=== PATIENT | female | born 1950 | race Caucasian/White ===

== ENCOUNTER → 2017-01-03 | Outpatient (CLI) | payer MEDICARE ==
[2017-01-03 16:08] LABS: THYROXINE (T4) 6.4 UG/DL (4.5-12.0)
== END | disposition home or self-care (01) ==
LOC: M LAB 15:00
PROVIDERS: ATTEND Family Medicine
DX: R63.5 Abnormal weight gain (principal); L65.9 Nonscarring hair loss, unspecified

== ENCOUNTER → 2017-03-17 | Outpatient (CLI) | payer MEDICARE ==
--- NOTE | 2017-03-17 13:03 | REPMRS ---
Patient History The patient states she has not had a clinical breast exam in over a year. Family history of breast cancer in mother at age 80, breast cancer in maternal aunt at age 50 or over, breast cancer in maternal cousin at age 50 or over, and prostate cancer in maternal uncle at age 50 or over. Digital Mammo Screening Bilat: March 17, 2017 - Exam #: [id number] Bilateral CC and MLO view(s) were taken. Technologist: Cynthia Lester, Technologist Prior study comparison: February 21, 2016, bilateral digital mammo screening bilat performed at [facility]. September 28, 2014, digital bilateral screening mammo, performed at [facility]. FINDINGS: There are scattered fibroglandular densities. There has been no change in the appearance of the mammogram from the prior studies. There is a mild amount of residual fibroglandular tissue which is fairly symmetric. There is no interval development of dominant mass, architectural distortion, or clustered microcalcification suggestive of malignancy. ASSESSMENT: BI-RADS/ACR category 1 mammogram. Negative. Recommendation Routine screening mammogram in 1 year (for women over age 40). This mammogram was interpreted with the aid of an FDA-approved computer-aided dectection system. Electronically Signed By: Sebas Neff MD 03/17/17 [id number]
== END ==
LOC: M RAD 12:40
PROVIDERS: ATTEND Family Medicine
DX: Z12.31 Encounter for screening mammogram for malignant neoplasm of breast (principal)

== ENCOUNTER → 2017-09-08 | Outpatient (CLI) | payer MEDICARE ==
--- NOTE | 2017-09-08 14:51 | REP ---
UNILATERAL MAMMOGRAM RIGHT BREAST WITH RIGHT BREAST ULTRASOUND: Unilateral mammogram right breast is performed. Reportedly, there is a palpable abnormality in the upper outer quadrant of the right breast. That area is marked on the skin with a triangular marker and additional spot compression views are performed. There is a family history of mother with breast cancer. Comparison is made with prior studies, most recent mammogram is 03/17/2017. Breast parenchyma is predominantly fatty replaced. No mass or clustered microcalcifications are seen. Real-time sonographic evaluation of the upper outer quadrant of the right breast demonstrates fibroglandular tissue without a discrete cystis or solid mass. IMPRESSION: ACR 2 benign. No mass or clustered microcalcifications. There is no mammographic or sonographic evidence of a mass at the site of the reported palpable abnormality in the upper outer quadrant of the right breast. A negative mammogram and ultrasound should not deter biopsy if there is a clinically suspicious palpable mass present. Clinical correlation and followup recommended. Recommend followup bilateral mammogram in March 2018. BI-RADS/ACR category 2 mammogram. Benign finding(s). Routine annual screening mammography (for women over age 40). This mammogram was interpreted with the aid of an FDA-approved computer-aided detection system. A. Negative x-ray reports should not delay biopsy if a dominant or clinically suspicious mass is present. B. Four to eight percent of cancers are not identified by x-ray. C. Adenosis and dense breasts may obscure an underlying neoplasm. The patient states she/he had a clinical breast exam in August 2017. The patient letter being requested is M2. Signed by Sebas Neff MD 09/08/2017 04:36 P
== END ==
LOC: M RAD 12:41
PROVIDERS: ATTEND Family Medicine
DX: N63.11 Unspecified lump in the right breast, upper outer quadrant (principal); Z80.3 Family history of malignant neoplasm of breast
CPT/HCPCS: 76642; G0206

== ENCOUNTER → 2019-02-08 | Outpatient (REF) | payer MEDICARE ==
[2019-02-09 13:15] LABS: BASO # 0.1 10^3/uL (0.0-0.2); BASO % 0.7 % (0.0-1.0); EOS # 0.1 10^3/uL (0.0-0.50); EOS % 0.9 % (0.0-3.0); HEMATOCRIT 38.8 % (36.0-47.0); HEMOGLOBIN 12.9 g/dl (12.0-15.5); LYMPH % 29.3 % (24.0-44.0); MEAN CORPUSCULAR HEMOGLOBIN 30.9 pg (27.0-33.0); MEAN CORPUSCULAR HGB CONC 33.2 g/dl (32.0-36.5); MEAN CORPUSCULAR VOLUME 92.8 fl (80.0-96.0); MONO # 0.5 10^3/uL (0.0-0.8); MONO % 7.7 % (0.0-5.0); NEUTROPHILS # 4.1 10^3/uL (1.8-7.7); NEUTROPHILS % 60.5 % (36.0-66.0); PLATELET COUNT, AUTOMATED 237 10^3/uL (150-450); RED BLOOD COUNT 4.18 10^6/uL (4.00-5.40); WHITE BLOOD COUNT 6.8 10^3/uL (4.0-10.0)
[2019-02-09 13:52] LABS: ALBUMIN 4.3 GM/DL (3.2-5.2); ALT/SGPT 35 U/L (12-78); BILIRUBIN,TOTAL 0.3 MG/DL (0.2-1.0); BLOOD UREA NITROGEN 19 MG/DL (7-18); CALCIUM LEVEL 8.7 MG/DL (8.8-10.2); CARBON DIOXIDE LEVEL 25 MEQ/L (21-32); CHLORIDE LEVEL 106 MEQ/L (98-107); CHOLESTEROL LEVEL 249 MG/DL (<200); CHOLESTEROL RISK RATIO 3.233 (<5); CREATININE FOR GFR 0.54 MG/DL (0.55-1.30); GLOMERULAR FILTRATION RATE > 60.0 (>45); GLUCOSE, FASTING 88 MG/DL (70-100); HDL CHOLESTEROL 77 MG/DL (>40); LDL CHOLESTEROL 135 MG/DL (<100); NON-HDL-C 172 MG/DL; POTASSIUM SERUM 4.2 MEQ/L (3.5-5.1); SODIUM LEVEL 139 MEQ/L (136-145); THYROXINE (T4) 7.1 UG/DL (4.5-12.0); TOTAL PROTEIN 7.1 GM/DL (6.4-8.2); TRIGLYCERIDES LEVEL 185 MG/DL (<150)
== END ==
LOC: M SFHCCLAY 15:57
PROVIDERS: ATTEND Family Medicine
DX: E78.5 Hyperlipidemia, unspecified (principal); R00.2 Palpitations; R63.5 Abnormal weight gain; Z23 Encounter for immunization
CPT/HCPCS: 80053; 80061; 84436; 84443; 84480; 85025; 90670; G0009; G0463

== ENCOUNTER → 2019-02-22 | Outpatient (CLI) | payer MEDICARE ==
--- NOTE | 2019-02-22 14:04 | REPMRS ---
Patient History The patient states she has not had a clinical breast exam in over a year. Family history of breast cancer at age 80 in mother, breast cancer at age 50 or over in maternal aunt, breast cancer at age 50 or over in maternal cousin, prostate cancer at age 50 or over in maternal uncle. Digital Mammo Screening Bilat: February 22, 2019 - Exam #: [id number] Bilateral CC and MLO view(s) were taken. Technologist: Aniyah López, Technologist Prior study comparison: September 08, 2017, right breast digital mammo diagnostic unilateral performed at [facility]. March 17, 2017, bilateral digital mammo screening bilat performed at [facility]. February 21, 2016, bilateral digital mammo screening bilat performed at [facility]. September 28, 2014, digital bilateral screening mammo, performed at [facility]. FINDINGS: There are scattered fibroglandular densities. There has been no change in the appearance of the mammogram from the prior studies. There is a mild amount of scattered fibroglandular density which is fairly symmetric. There is no interval development of dominant mass, architectural distortion, or clustered microcalcification suggestive of malignancy. 3-D tomosynthesis shows no additional findings. Assessment: BI-RADS/ACR category 1 mammogram. Negative Mammogram. Recommendation Routine screening mammogram of both breasts in 1 year (for women over age 40). This patient's Lifetime Breast Cancer RIsk is estimated at 11.9 %. This mammogram was interpreted with the aid of an FDA-approved computer-aided dectection system. Electronically Signed By: Ashish Marshall MD 02/22/19 [id number]
== END ==
LOC: M RAD 11:32
PROVIDERS: ATTEND Family Medicine
DX: Z12.31 Encounter for screening mammogram for malignant neoplasm of breast (principal); Z80.3 Family history of malignant neoplasm of breast